=== PATIENT | female | born 1990 | race Caucasian/White ===

== ENCOUNTER 2017-03-02 12:08 | Outpatient (CLI) | payer SELFPAY ==
[~2017-03-02] VITALS: Ht 154.9 cm; Wt 49.4 kg
[2017-03-02 12:31] VITALS: Ht 154.9 cm; Wt 49.4 kg
[2017-03-02 12:41] VITALS: BP 106/56; PULSE 82
--- NOTE | 2017-03-02 12:41 | RADRPT ---
PROCEDURE: US OB biophysical profile. CLINICAL INDICATION: decreased movements, labor TECHNIQUE: Multiple sonographic images of the pelvis were obtained. The images were reviewed on a PACS workstation. COMPARISON: No prior studies are available for comparison. FINDINGS: There is a single viable intrauterine gestation. Cardiac activity is present with 142 beats per min [place]. There is a vertex presentation. The placenta is anterior fundal posterior. There is no evidence of placental abruption. There is a normal amount of amniotic fluid with a MVP= 5.5 cm. Biophysical profile: movement 2/2 tone 2/2. breathing 2/2 ALTAGRACIA 2/2 Total 04/28 RPTAT: AA . IMPRESSION: Normal biophysical profile. . .Dc Walden MD, Date Time Electronically viewed and signed by .Dc Walden MD, on 03/02/2017 12:41 .S/
[2017-03-02] MEDS ORDERED: FOLI0.4T2 PO (12:43)
[2017-03-02 13:26] LABS: ADD UMIC YES; URINE BILIRUBIN (Dip) NEGATIVE (NEGATIVE); URINE BLOOD (Dip) NEGATIVE (NEGATIVE); URINE COLOR LT. YELLOW (YELLOW); URINE GLUCOSE (Dip) NEGATIVE (NEGATIVE); URINE KETONES (Dip) NEGATIVE (NEGATIVE); URINE LEUKOCYTE ESTERASE (Dip) 1+ (NEGATIVE); URINE NITRITE (Dip) POSITIVE (NEGATIVE); URINE TOTAL PROTEIN (Dip) NEGATIVE (NEGATIVE); URINE UROBILINOGEN (Dip) 0.2 E.U./dL (0.1-1.0)
[2017-03-02 13:40] LABS: BACTERIA,URINE MANY; URINE RBCS 0-2 /HPF (0)
--- NOTE | 2017-03-02 14:36 | RADRPT ---
PROCEDURE: Limited obstetric ultrasound CLINICAL INDICATION: Pain TECHNIQUE: Multiple transverse and longitudinal grayscale images of the pelvis were obtained tra nsvaginally.. COMPARISON: same day FINDINGS: The cervix is closed with a length of 3.9 cm. RPTAT: AA IMPRESSION: Cervix length measures 3.9 cm. .Dc Walden MD, MD Date Time Electronically viewed and signed by .Dc Walden MD, on 03/02/2017 14:36 .S/
--- NOTE | 2017-03-02 17:44 | QN ---
Documentation Comment iup 24 weeks no pnc no compliants-deisres US vss exam wnl us wnl iup 24 weeks false labor fu with tre in 1-2 days MOON LAUREANO MD Mar 02, 2017 17:44
== END 2017-03-02 16:05 | disposition home or self-care (01) ==
LOC: OBT 12:08 → L-D 12:09 → OBT 16:05
DX: O47.02 False labor before 37 completed weeks of gestation, second trimester (principal); Z3A.24 24 weeks gestation of pregnancy
CPT/HCPCS: 76817; 76818; 81001; G0463

== ENCOUNTER 2017-06-12 11:53 | Inpatient (IN) | payer MEDICAID ==
[~2017-06-12] VITALS: Ht 160 cm; Wt 53.9 kg
[~2017-06-12 11:53] MED LIST: FOLI0.4T2 PO
--- NOTE | 2017-06-12 11:56 | NSTRPT ---
NST Information Datetime Report Generated by CPN: 06/12/2017 11:56 Datetime: 05/19/2017 13:10 NST Information EGA: 35.6 Test Number: 3 Time on Monitor: 05/19/2017 13:35 Time off Monitor: 05/19/2017 14:05 NST Duration (Min): 30 Reason for NST: Polyhydramnios Test and Monitor Explained: Monitor Explained; Test Explained; Verbalized Understanding Pulse: 82 Resp: 16 SBP: 96 DBP: 62 Test Evaluation NST Interventions: Reposition Patient Patient States Movement: Present Contraction Frequency: irritability, denies FHR Baseline : 130 (Annotations: Data stored by N on behalf of user) Variability: Moderate 6-25bpm Accelerations: 15X15 Decelerations: None FHR Category: Category I NST Results: Reactive Comments: To u/s, ALTAGRACIA 18.0cm, cephalic U/S results reviewed by Dr. Rubi prior to pt discharge home. No follow-up NST/ALTAGRACIA necessary per Dr. Rubi. 1416-Pt home undelivered with PTL precautions, kick count instructions reviewed and to foll ow up in clinic for reg allegra appt. States understanding and denies further questions at this time. Electronically Signed By E-Signature: with User ID: [id number] Datetime: 05/15/2017 13:12 NST Information EGA: 33.4 NST Duration (Min): 48184 Datetime: 05/12/2017 14:13 NST Information EGA: 34.6 NST Duration (Min): 33
[2017-06-12 13:07] VITALS: Ht 160 cm; Wt 53.9 kg
[2017-06-12 13:08] VITALS: BP 132/62; PULSE 86
[2017-06-12] MEDS ORDERED: CARBOPROST 250 MCG INJ IM PRN (13:30)
[2017-06-12] MEDS ORDERED: OXYTOCIN 30 UNITS/LR 500 ML IV PRN (13:30)
[2017-06-12] MEDS ORDERED: OXYTOCIN 30 UNITS/LR 500 ML IV SCH ×3 (13:30→15:00)
[2017-06-12] MEDS ORDERED: AMPICILLIN 2 GM/NS (PMX) 100 ML IV ONE (13:30)
[2017-06-12] MEDS ORDERED: BUTORPHANOL 2 MG INJ IV PRN ×2 (13:30)
[2017-06-12] MEDS ORDERED: MISOPROSTOL 200 MCG TAB PR PRN (13:30)
[2017-06-12] MEDS ORDERED: METHYLERGONOVINE 0.2 MG INJ IM PRN (13:30)
[2017-06-12] MEDS ORDERED: LIDOCAINE 1% (MPF) 30 ML INJ INJ PRN (13:30)
[2017-06-12] MEDS ORDERED: LACTATED RINGER'S 1,000 ML IV PRN (13:30)
[2017-06-12] MEDS: LACTATED RINGER'S 1,000 ML IV SCH ×2 (13:39→18:41)
--- NOTE | 2017-06-12 13:45 | RADRPT ---
PROCEDURE: US OB. CLINICAL INDICATION: Size and dates , rupture of membranes TECHNIQUE: Multiple sonographic images of the pelvis and gravid uterus were obtained. The images were reviewed on a PACS workstation. COMPARISON: No prior studies are available for comparison. FINDINGS: There is a single viable intrauterine gestation. Cardiac activity is present with 138 beats per min [place]. There is a vertex presentation. The placenta is anterior. There is no evidence for an abruption or placenta previa. There is a normal amount of amniotic fluid with an ALTAGRACIA = 11.0 cm. Measurements were made in order to determine age. The results are as follows: BPD =8.9 cm HC =31.8 cm AC =33.4 cm FL =6.7 cm Estimated gestational age of approximately 35 weeks and 6 days based on ultrasound measurements. Clinical age: 39 weeks and 2 days. The estimated date of delivery is 07/11/17, based on ultrasound measurements. The EFW = 2882 g, 8.5%, based on LMP age. RPTAT: AA IMPRESSION: Single viable intrauterine gestation of approximately 35 weeks and 6 days based on ultrasound measu rements. Smaller than clinical age by 3.5 weeks. .Dc Walden MD, Date Time Electronically viewed and signed by .Dc Walden MD, MD on 06/12/2017 13:45 .S/
[2017-06-12 14:03] LABS: BASOPHILS % 0.4 % (0.0-2.0); EOSINOPHILS % 0.5 % (0.0-7.0); HEMATOCRIT 39.1 % (37.0-47.0); LYMPHOCYTES # 1.3 10^3/ul (0.8-2.9); LYMPHOCYTES % 23.9 % (15.0-51.0); MEAN CORPUSCULAR HGB CONC 33.2 g/dl (32.0-37.0); MEAN CORPUSCULAR VOLUME 90.3 fl (82.0-101.0); MEAN PLATELET VOLUME 12.4 fl (7.4-10.4); MONOCYTE # 0.4 10^3/ul (0.3-0.9); MONOCYTES % 7.5 % (0.0-11.0); NEUTROPHIL # 3.7 10^3/ul (1.6-7.5); NEUTROPHILS % 67.2 % (39.0-77.0); PLATELET COUNT 145 10^3/UL (140-415); RED BLOOD COUNT 4.33 10^6/ul (4.20-5.40); RED CELL DISTRIBUTION WIDTH 15.3 % (11.5-14.5); WHITE BLOOD COUNT 5.6 10^3/ul (4.8-10.8)
[2017-06-12 14:17] LABS: INR 0.9; PROTIME 12.1 Sec (12.2-14.2); PT RATIO 0.9
[2017-06-12 14:18] LABS: PARTIAL THROMBOPLASTIN TIME 27.6 Sec (25.0-35.0)
[2017-06-12] MEDS: AMPICILLIN 1 GM/NS (PMX) 50 ML IV SCH ×2 (18:46→21:30)
[2017-06-12] MEDS ORDERED: morphine 10 MG INJ ONE (22:24)
--- NOTE | 2017-06-12 22:56 | HP ---
Date/Time of Note Date/Time of Note DATE: 06/12/17 TIME: 22:54 OB - History Hx of Present Chief Complaint: leakage of fluid Estimated Due Date: Jun 17, 2017 : 2 Para: 1 Spontaneous : 0 Therapeutic : 0 Care: Good Care Ultrasounds: Normal mid trimester US Obstetrical Complications: None Medical Complications: None Past Family/Social History * Past Medical, Surgical, Family and Obstetric Histories reviewed from chart. GBS Status: Positive OB Admission Exam Vital Signs Vital Signs Vital Signs Date Time Temp Pulse Resp B/P Pulse Ox O2 Delivery O2 Flow Rate FiO2 06/12/17 13:08 97.9 86 132/62 Physical Exam HEENT: WNL Heart: Rhythm Normal Lungs: Clear, Equal Abdomen: WNL Extremities: Normal Reflexes: Normal Cervical Dilatation: None Effacement: 50% Station: -1 Membranes: Ruptured Amniotic Fluid: Clear Heart Rate: 130's Accelerations: Accelerations Present Last 72 hours Lab Results CBC & BMP 06/12/17 13:40 OB Assessment/Plan Reason for admission: rupture of membranes Plan: Induction Induction Method: per Pitocin Protocol GUERDA LANDRY MD Jun 12, 2017 22:56
--- NOTE | 2017-06-12 22:59 | LDN ---
Date/Time of Note Date/Time of Note DATE: 06/12/17 TIME: 22:56 Delivery Summary Weeks of Gestation 39 weeks Placenta Delivered: Spontaneously Meconium: none Episiotomy: No Perineal laceration: 2 Laceration repair: Vaginal and first degree perineal laceration repaired with 3-0 chromic. Anesthesia type: Local Estimated blood loss: 400 Sponge & Needle done & correct: Yes All needle counts correct: Yes Any foreign bodies felt in the: No Problems: Infant Delivery Information Sex Infant Sex: male Apgars 1 Minute: 9 5 Minute: 9 Suctioning Nose & mouth suctioned at cathie: Yes Delee suction performed: No Umbilical Cord Umbilical cord with: 3 Vessels Cord presentations: no nuchal cord Cord Blood was obtained: Yes Mother & Baby Disposition Disposition Mom & Baby to Maternity; Good: Yes GUERDA LANDRY MD Jun 12, 2017 22:59
[2017-06-12] MEDS ORDERED: morphine 10 MG INJ IV ONE (23:07)
[2017-06-13 01:00] VITALS: BP 116/76; PULSE 57; RESP 19
[2017-06-13] MEDS: LACTATED RINGER'S 1,000 ML IV* SCH ×3 (01:16→17:16)
[2017-06-13 01:30] VITALS: BP 127/76; PULSE 69; RESP 18
[2017-06-13] MEDS ORDERED: BENZOCAINE 20% 56 ML SPRAY TOP PRN (01:30)
[2017-06-13] MEDS ORDERED: METHYLERGONOVINE 0.2 MG INJ IM PRN (01:30)
[2017-06-13] MEDS ORDERED: DIBUCAINE 1% 30 GM OINT PR PRN (01:30)
[2017-06-13] MEDS ORDERED: HYDROCODONE/APAP (5/325) TAB PO PRN (01:30)
[2017-06-13] MEDS ORDERED: MISOPROSTOL 200 MCG TAB PR PRN (01:30)
[2017-06-13] MEDS ORDERED: OXYTOCIN 30 UNITS/LR 500 ML IV PRN (01:30)
[2017-06-13] MEDS ORDERED: CARBOPROST 250 MCG INJ IM PRN (01:30)
[2017-06-13] MEDS ORDERED: WITCH HAZEL/GLYCERIN PAD PR PRN (01:30)
[2017-06-13] MEDS ORDERED: ACETAMINOPHEN 325 MG TAB PO PRN (01:30)
[2017-06-13 04:00] VITALS: BP 127/78; PULSE 65; RESP 19
[2017-06-13] MEDS: IBUPROFEN 600 MG TAB PO SCH ×3 (05:52→17:08)
[2017-06-13 06:35] LABS: BASOPHILS % 0.2 % (0.0-2.0); HEMATOCRIT 39.6 % (37.0-47.0); HEMOGLOBIN 13.5 g/dl (12.0-16.0); LYMPHOCYTES # 0.9 10^3/ul (0.8-2.9); LYMPHOCYTES % 6.6 % (15.0-51.0); MEAN CORPUSCULAR HEMOGLOBIN 30.9 pg (29.0-33.0); MEAN CORPUSCULAR HGB CONC 34.1 g/dl (32.0-37.0); MEAN CORPUSCULAR VOLUME 90.6 fl (82.0-101.0); MEAN PLATELET VOLUME 12.8 fl (7.4-10.4); MONOCYTE # 0.7 10^3/ul (0.3-0.9); NEUTROPHIL # 11.5 10^3/ul (1.6-7.5); NEUTROPHILS % 87.7 % (39.0-77.0); PLATELET COUNT 150 10^3/UL (140-415); RED BLOOD COUNT 4.37 10^6/ul (4.20-5.40); RED CELL DISTRIBUTION WIDTH 14.7 % (11.5-14.5); WHITE BLOOD COUNT 13.1 10^3/ul (4.8-10.8)
[2017-06-13 08:05] VITALS: BP 109/55; PULSE 62; RESP 18
[2017-06-13] MEDS: SENNA/DOCUSATE NA (8.6MG/50MG) TAB PO SCH ×2 (08:51→21:41)
[2017-06-13 17:33] VITALS: BP 114/73; RESP 18
--- NOTE | 2017-06-13 18:02 | QN ---
Documentation Comment No complaint Afebrile VSS Fundus Firm Lochia scant PPD #1 Stable Routine pp care. GUERDA LANDRY MD Jun 13, 2017 18:02
--- NOTE | 2017-06-13 18:03 | DS ---
Date/Time of Note Date/Time of Note DATE: 06/13/17 TIME: 18:02 Obstetrical Discharge Record Final Diagnosis Final Diagnosis: Term delivered Vaginal Delivery Obstetrical Delivery: Spontaneous Condition on Discharge Physical Assessment Voiding: Yes Bowel Movement: Yes Breast: Soft, non-tender, Filling Fundus: Firm Calf Tenderness: No Patient Condition: Stable GUERDA LANDRY MD Jun 13, 2017 18:03
[2017-06-13 20:00] VITALS: BP 104/79; PULSE 67; RESP 19
[2017-06-14] MEDS: IBUPROFEN 600 MG TAB PO SCH ×3 (00:24→12:35)
[2017-06-14 04:00] VITALS: BP 99/53; PULSE 72; RESP 18
[2017-06-14 06:05] VITALS: BP 99/53; PULSE 72; RESP 18
[2017-06-14 07:40] VITALS: BP 111/67; PULSE 63; RESP 18
[2017-06-14] MEDS: SENNA/DOCUSATE NA (8.6MG/50MG) TAB PO SCH (08:26)
[2017-06-14] MEDS ORDERED: INFLUENZA VIRUS VACCINE 0.5 ML SYG IM* ONE (09:00)
[2017-06-14] MEDS ORDERED: DIPHTH/TET/ACEL PERTUSS (ADULT) 0.5 ML VIAL IM* ONE (09:00)
--- NOTE | 2017-06-14 15:28 | QN ---
Documentation Comment No complaint Afebrile VSS Fundus Firm Lochia scant PPD #1 Stable Routine pp care. GEURDA LANDRY MD Jun 14, 2017 15:28
== END 2017-06-14 16:00 | disposition home or self-care (01) | DRG 775 ==
LOC: OBT 11:53 → L-D 11:55 → OBT 13:00 → L-D 13:13 → PP1 06-13 00:36
PROVIDERS: ADMIT Obstetrics & Gynecology; ATTEND Obstetrics & Gynecology
PROC: 10E0XZZ Delivery of Products of Conception, External Approach (ICD-10-PCS; principal; 2017-06-12)
PROC: 0KQM0ZZ Repair Perineum Muscle, Open Approach (ICD-10-PCS; 2017-06-12)
DX: O70.1 Second degree perineal laceration during delivery (principal); Z37.0 Single live birth; Z3A.39 39 weeks gestation of pregnancy
CPT/HCPCS: 76815; 84112; 85025; 85610; 85730; 86592; 86900; 86901; 87340; 90686; 90715; G0463; J0290; J2270; J2590; J7120

== ENCOUNTER 2017-06-18 12:09 | Emergency (ER) | payer MEDICAID ==
[~2017-06-18] VITALS: Ht 160 cm; Wt 46.5 kg
[2017-06-18 12:12] VITALS: Ht 160 cm; Wt 46.5 kg
[2017-06-18 14:12] LABS: BASOPHILS % 0.3 % (0.0-2.0); EOSINOPHILS # 0.1 10^3/ul (0.0-0.5); EOSINOPHILS % 0.7 % (0.0-7.0); HEMATOCRIT 40.8 % (37.0-47.0); HEMOGLOBIN 13.8 g/dl (12.0-16.0); LYMPHOCYTES # 1.9 10^3/ul (0.8-2.9); LYMPHOCYTES % 18.4 % (15.0-51.0); MEAN CORPUSCULAR HEMOGLOBIN 31.1 pg (29.0-33.0); MEAN CORPUSCULAR HGB CONC 33.8 g/dl (32.0-37.0); MEAN CORPUSCULAR VOLUME 91.9 fl (82.0-101.0); MEAN PLATELET VOLUME 10.5 fl (7.4-10.4); MONOCYTE # 0.7 10^3/ul (0.3-0.9); MONOCYTES % 7.1 % (0.0-11.0); NEUTROPHIL # 7.4 10^3/ul (1.6-7.5); NEUTROPHILS % 73.2 % (39.0-77.0); PLATELET COUNT 250 10^3/UL (140-415); RED BLOOD COUNT 4.44 10^6/ul (4.20-5.40); RED CELL DISTRIBUTION WIDTH 14.8 % (11.5-14.5)
[2017-06-18 14:33] LABS: ALBUMIN 3.8 g/dl (3.3-4.9); ALBUMIN/GLOBULIN RATIO 0.9; BILIRUBIN,INDIRECT 0.5 mg/dl (0-1.1); BILIRUBIN,TOTAL 0.5 mg/dl (0.2-1.3); CALCIUM 9.5 mg/dl (8.4-10.2); CREATININE 0.63 mg/dl (0.44-1.00)
--- NOTE | 2017-06-18 15:00 | RADRPT ---
PROCEDURE: US Pelvis. CLINICAL INDICATION: Vaginal bleeding following delivery on June 12, 2017 TECHNIQUE: Multiple sonographic images of the pelvis were obtained utilizing a transabdominal and endovaginal technique. The images were reviewed on a PACS workstation. COMPARISON: June 12, 2017 FINDINGS: The uterus is anteverted, , and measures 13.2 x 8.9 x 8.5 cm. The endometrial echo complex is prominent and measures 3 cm. No definite findings of retained products of conception are seen. T here is no evidence for free fluid. Both ovaries were not visualized. No adnexal masses are noted. IMPRESSION: uterus with prominent endometrial echo complex. No definite retained products of concepti on. Gynecologic follow-up may be helpful. RPTAT: EE .Kanchan Taylor MD, Date Time Electronically viewed and signed by .Kanchan Taylor MD, on 06/18/2017 15:00 .F/
[2017-06-18 17:53] LABS: URINE BLOOD (Dip) POC 3+ (NEGATIVE)
--- NOTE | 2017-06-18 18:50 | ERD ---
ER Documentation Chief Complaint Date/Time DATE: 06/18/17 TIME: 18:45 Chief Complaint vag bleed increased yesterday had vaginal delivery on 06/12/17 HPI 26-year-old female patient with no significant past medical history who is a presents to the ED for vaginal delivery states that she feels lightheaded and dizzy. Reports that her vaginal bleeding has worsened. States that she has had to change 5 pads. Reports that her doctor is Dr. Ivan. Reports slight dysuria however states that she is taking Macrobid for her urinary tract infection and is on day 2. Denies any chest pain, shortness of breath, nausea, vomiting, diarrhea, abdominal pain, diarrhea, constipation. ROS All systems reviewed and are negative except as per history of present illness. Medications Home Meds Reported Medications Folic Acid* (Folic Acid*) 0.4 Mg Tablet, 0.4 MG PO DAILY, TAB 03/02/17 Allergies Allergies: Coded Allergies: No Known Allergy (Unverified , 03/02/17) PMhx/Soc Medical and Surgical Hx: pt denies Medical Hx, pt denies Surgical Hx Physical Exam Vitals Vital Signs Date Time Temp Pulse Resp B/P Pulse Ox O2 Delivery O2 Flow Rate FiO2 06/18/17 12:12 98.0 98 18 109/77 99 Physical Exam Const: Enb-gss-[id number], well-nourished. In no acute distress. Head: Atraumatic, normocephalic Eyes: Normal Conjunctiva without injection. No purulent discharge. ENT: Normal external ear, nose. Moist oropharynx without tonsillar exudates. Non -erythematous pharynx. Uvula midline. No drooling. No trismus. Neck: No cervical midline tenderness. Full range of motion. No meningismus. No cervical lymphadenopathy. No JVD. Resp: Clear to auscultation bilaterally. No wheezing, rhonchi, rales, or crackles. No accessory muscle use. No retractions. Cardio: Regular rate and rhythm. No murmurs, rubs or gallops. Abd: Soft, nontender, non distended. Normal bowel sounds. No palpable masses. No rebound tenderness. No guarding. Negative McBurney's point. Negative psoas sign. Negative obturator sign. : Look at MDM Skin: No petechiae or rashes Back: No midline tenderness. No CVA tenderness. Ext: No cyanosis, or edema. Neur: Awake and alert. Normal gait. Normal coordination. Psych: Normal Mood and Affect Result Diagram: 06/18/17 1355 06/18/17 1355 Results 24 hrs Laboratory Tests Test 06/18/17 13:55 06/18/17 18:01 White Blood Count 10.010^3/ul Red Blood Count 4.4410^6/ul Hemoglobin 13.8g/dl Hematocrit 40.8% Mean Corpuscular Volume 91.9fl Mean Corpuscular Hemoglobin 31.1pg Mean Corpuscular Hemoglobin Concent 33.8g/dl Red Cell Distribution Width 14.8% Platelet Count 00913^3/UL Mean Platelet Volume 10.5fl Neutrophils % 73.2% Lymphocytes % 18.4% Monocytes % 7.1% Eosinophils % 0.7% Basophils % 0.3% Nucleated Red Blood Cells % 0.0/100WBC Neutrophils # 7.410^3/ul Lymphocytes # 1.910^3/ul Monocytes # 0.710^3/ul Eosinophils # 0.110^3/ul Basophils # 0.010^3/ul Nucleated Red Blood Cells # 0.010^3/ul Sodium Level 140mmol/L Potassium Level 4.0mmol/L Chloride Level 104mmol/L Carbon Dioxide Level 30mmol/L Anion Gap 10 Blood Urea Nitrogen 12mg/dl Creatinine 0.63mg/dl Glucose Level 86mg/dl Calcium Level 9.5mg/dl Total Bilirubin 0.5mg/dl Direct Bilirubin 0.00mg/dl Indirect Bilirubin 0.5mg/dl Aspartate Amino Transf (AST/SGOT) 46IU/L Alanine Aminotransferase (ALT/SGPT) 82IU/L Alkaline Phosphatase 131IU/L Total Protein 8.0g/dl Albumin 3.8g/dl Globulin 4.20g/dl Albumin/Globulin Ratio 0.90 Bedside Urine pH (LAB) 6.0 Bedside Urine Protein (LAB) Negative Bedside Urine Glucose (UA) Negative Bedside Urine Ketones (LAB) Negative Bedside Urine Blood 3+ Bedside Urine Nitrite (LAB) Negative Bedside Urine Leukocyte Esterase (L 1+ Procedures/MDM 26-year-old female patient with no significant past medical history is a presents to the ED complaining of vaginal bleeding. Patient is afebrile and nontoxic-appearing. Patient has normal vital signs. Patient was further worked up with CBC, CMP, UA, pelvic ultrasound. Pelvic Exam: Grocery Cashier present Abdomen: [Nontender] External Genitalia: [Normal Skin] Speculum: [Normal vaginal mucosa, normal cervical discharge, vaginal bleeding noted] Bimanual: [No adnexal masses or tenderness, No CMT] CBC: No leukocytosis. No e/o of systemic infection. No e/o anemia. CMP: No e/o severe acidosis, alkalosis, renal failure, diabetic ketoacidosis, liver disease Lipase within normal limits. Urine: No leukocyte esterase, no nitrites, no hematuria. Urine : negative PROCEDURE: US Pelvis. CLINICAL INDICATION: Vaginal bleeding following delivery on June 12, 2017 TECHNIQUE: Multiple sonographic images of the pelvis were obtained utilizing a transabdominal and endovaginal technique. The images were reviewed on a PACS workstation. COMPARISON: June 12, 2017 FINDINGS: The uterus is anteverted, , and measures 13.2 x 8.9 x 8.5 cm. The endometrial echo complex is prominent and measures 3 cm. No definite findings of retained products of conception are seen. There is no evidence for free fluid. Both ovaries were not visualized. No adnexal masses are noted. IMPRESSION: uterus with prominent endometrial echo complex. No definite retained products of conception. Gynecologic follow-up may be helpful. Low suspicion for products of conception, foreign bodies, ectopic , ovarian torsion, gastritis, GERD, peptic ulcer disease, cholecystitis, choledocholithiasis, cholangitis, pancreatitis, appendicitis, bowel obstruction , ileus, volvulus, nephrolithiasis, pyelonephritis, hepatitis, perforated viscus , diverticulitis, strangulated/incarcerated hernia, DKA, acute abdomen, mesenteric ischemia or other emergent conditions. Discharge medications: Continue taking Macrobid for UTI Follow up with [facility] in 1-2 days for further evaluation and treatment. Instructed patient to return to the ED sooner for any worsening symptoms. Patient's questions were answered. Patient understood and agreed with discharge plan. Patient discharged stable. Departure Diagnosis: Primary Impression: Vaginal bleeding Condition: Stable Patient Instructions: After a Vaginal , Urinary Tract Infections in Women , Vaginal : Your Experience Referrals: COMMUNITY CLINICS YOU HAVE RECEIVED A MEDICAL SCREENING EXAM AND THE RESULTS INDICATE THAT YOU DO NOT HAVE A CONDITION THAT REQUIRES URGENT TREATMENT IN THE EMERGENCY DEPARTMENT. FURTHER EVALUATION AND TREATMENT OF YOUR CONDITION CAN WAIT UNTIL YOU ARE SEEN IN YOUR DOCTORS OFFICE WITHIN THE NEXT 1-2 DAYS. IT IS YOUR RESPONSIBILITY TO MAKE AN APPOINTMENT FOR FOLOW-UP CARE. IF YOU HAVE A PRIMARY DOCTOR --you should call your primary doctor and schedule an appointment IF YOU DO NOT HAVE A PRIMARY DOCTOR YOU CAN CALL OUR PHYSICIAN REFERRAL HOTLINE AT IF YOU CAN NOT AFFORD TO SEE A PHYSICIAN YOU CAN CHOSE FROM THE FOLLOWING [facility] [address] [facility] [address] [facility] [facility] [address] [facility] [address] [facility] [address] [facility] [facility] [address] [facility] [facility] YOU HAVE RECEIVED A MEDICAL SCREENING EXAM AND THE RESULTS INDICATE THAT YOU DO NOT HAVE A CONDITION THAT REQUIRES URGENT TREATMENT IN THE EMERGENCY DEPARTMENT. FURTHER EVALUATION AND TREATMENT OF YOUR CONDITION CAN WAIT UNTIL YOU ARE SEEN IN YOUR DOCTORS OFFICE WITHIN THE NEXT 1-2 DAYS. IT IS YOUR RESPONSIBILITY TO MAKE AN APPOINTMENT FOR FOLOW-UP CARE. IF YOU HAVE A PRIMARY DOCTOR --you should call your primary doctor and schedule and appointment IF YOU DO NOT HAVE A PRIMARY DOCTOR YOU CAN CALL OUR PHYSICIAN REFERRAL HOTLINE AT . IF YOU CAN NOT AFFORD TO SEE A PHYSICIAN YOU CAN CHOSE FROM THE FOLLOWING [facility]: [facility] [address] [place] [address] [facility] [address] [place] [address] [facility] + [facility] [address] [place] [address] [facility] URGENT CARE/SPECIALTIES Additional Instructions: Contine tomando imer antibiticos para pete infeccin del tracto urinario prescrito por pete mdico Visite a pete veronica, Dr. Moncho rdz para un EXAMEN para el tratamiento y evaluacin adicional. Regrese a estas instalaciones si no se mejora danny esper bamos o danny le dijimos. BONNIE HILL PA-C Jun 18, 2017 18:50
== END 2017-06-18 18:30 | disposition home or self-care (01) ==
LOC: FTE 12:09
DX: O72.2 Delayed and secondary postpartum hemorrhage (principal)
CPT/HCPCS: 36415; 76830; 76856; 80053; 81003; 85025; Z7502